=== PATIENT | female | born 1945 | race Caucasian/White ===

== ENCOUNTER → 2017-01-02 | Outpatient (CLI) | payer SELFPAY ==
[~2017-01-02] MED LIST: LIDOCAINE 1% 30ml (STERI-PAK) ONE; SALINE FLUSH *Sterile Field* 10ml SYRINGE ONE
--- NOTE | 2017-01-03 11:44 | DI ---
Indication:ITS.REASON: R22.9 Localized swelling, mass and lump, unspecified Procedure:US BIOPSY MUSCLE w/US GUIDE SOFT TISSUE MASS BIOPSY: After explaining the details of the procedure, including the risks, the patient wished to proceed. Informed consent was obtained. A preprocedural timeout was performed to confirm the correct patient and procedure. Using aseptic technique, local lidocaine anesthetic, and ultrasound guidance, an 18-gauge core biopsy needle was utilized to obtain three, 3-cm tissue samples of the large soft tissue mass located in the medial aspect of the right upper thigh. The tissue samples were sent to lab for the requested studies. There was no complication in the recent tolerated this procedure well. Following this, she left the imaging department in stable condition. Impression: Successful core biopsy of the soft tissue mass located in the medial aspect of the right upper thigh. Hitesh Borja RPA/ALFREDO performed this under my personal supervision. .
== END ==
LOC: IMA 15:38
PROVIDERS: ATTEND Internal Medicine Hematology & Oncology
DX: R22.9 Localized swelling, mass and lump, unspecified (principal)
CPT/HCPCS: 20206; 87070; 87075; 87205